=== PATIENT | male | born 1965 | race Caucasian/White ===

== ENCOUNTER 2022-05-04 22:39 | Emergency (ER) | payer MEDICAID, OTHER ==
[~2022-05-04] VITALS: Ht 177.8 cm; Wt 80.0 kg
[2022-05-04 23:21] LABS: BASOPHILS % 0.4 % (0.0-2.0); EOSINOPHILS % 1.5 % (0.0-5.0); HEMATOCRIT. 42.1 % (42.0-52.0); HEMOGLOBIN. 14.6 g/dL (14.0-18.0); LYMPHOCYTES % 26.6 % (20.0-50.0); MEAN CORPUSCULAR HEMOGLOBIN 32.8 pg (28.0-32.0); MEAN CORPUSCULAR VOLUME 94.2 fL (80.0-94.0); MEAN PLATELET VOLUME 9.5 fl (7.4-10.4); NEUTROPHILS % 60.5 % (40.0-76.0); PLATELET 210 x1000/uL (130-400); RED BLOOD CELL COUNT 4.47 mill/uL (4.7-6.1); RED CELL DISTRIBUTION WIDTH 13.5 % (11.6-14.6)
[2022-05-04] MEDS ORDERED: IOHEXOL-350 100 ML BOTTLE ONE (23:39)
[2022-05-05 00:06] LABS: CHLORIDE 103 mEq/L (98-107)
[2022-05-05 00:08] LABS: INR 1.3
[2022-05-05 00:24] LABS: ETHANOL BLOOD < 10 mg/dL
[2022-05-05] MEDS ORDERED: ASPIRIN 325MG EC TABLET PO ONE (02:00)
[2022-05-05] MEDS ORDERED: ASPIRIN 300MG SUPP PR ONE (03:45)
[2022-05-05 10:45] VITALS: BP 169/98
== END 2022-05-05 11:14 | disposition hospice, inpatient (51) ==
LOC: ER 22:39
DX: I63.512 Cerebral infarction due to unspecified occlusion or stenosis of left middle cerebral artery (principal); G93.41 Metabolic encephalopathy; G81.91 Hemiplegia, unspecified affecting right dominant side; R29.810 Facial weakness; R03.0 Elevated blood-pressure reading, without diagnosis of hypertension; Z20.822 Contact with and (suspected) exposure to COVID-19; E11.9 Type 2 diabetes mellitus without complications; Z95.1 Presence of aortocoronary bypass graft
CPT/HCPCS: 36415; 70450; 70496; 70498; 71045; 80053; 80320; 82140; 84443; 85025; 85610; 87426; 93005; 99291; C9803; Q9967; G0480